=== PATIENT | male | born 1950 | race Caucasian/White ===

== ENCOUNTER → 2018-03-21 | Day surgery (SDC) | payer MEDICARE, OTHER ==
[~2018-03-21] MED LIST: LIDOCAINE 1% PF 2 ML VIAL. ID; MORPHINE SULFATE 2 MG/ML DISP.SYRIN. IV; ONDANSETRON PF 4 MG/2 ML VIAL. IV; PROCHLORPERAZINE 10 MG/2 ML VIAL. IV; PROPOFOL 40 ML IV
[2018-03-21] MEDS: IV RINGERS,LACTATED 1000ML 1,000 ML IV (11:29)
== END | disposition home or self-care (01) ==
LOC: ENDOS 10:56
DX: K63.5 Polyp of colon (principal); K57.30 Diverticulosis of large intestine without perforation or abscess without bleeding; K64.0 First degree hemorrhoids; I10 Essential (primary) hypertension; F41.9 Anxiety disorder, unspecified; E78.00 Pure hypercholesterolemia, unspecified; F32.9 Major depressive disorder, single episode, unspecified; Z88.5 Allergy status to narcotic agent; Z91.040 Latex allergy status; Z82.49 Family history of ischemic heart disease and other diseases of the circulatory system; Z72.89 Other problems related to lifestyle; Z79.82 Long term (current) use of aspirin; Z79.899 Other long term (current) drug therapy; Z88.8 Allergy status to other drugs, medicaments and biological substances; Z98.42 Cataract extraction status, left eye; Z98.41 Cataract extraction status, right eye; Z96.1 Presence of intraocular lens; Z87.891 Personal history of nicotine dependence
CPT/HCPCS: 45380; 88305; J2704

== ENCOUNTER → 2021-07-15 | Day surgery (SDC) | payer MEDICARE ==
[~2021-07-15] VITALS: Ht 170.2 cm; Wt 77.0 kg
[~2021-07-15] MED LIST changes: +ALPR0.5T6 PO; +AMLO-187 PO; +ASPI81TA50 PO; +FINA5TAB4 PO; +IV RINGERS,LACTATED 1000ML 1,000 ML IV SCH; -LIDOCAINE 1% PF 2 ML VIAL. ID; +METO-239 PO; -MORPHINE SULFATE 2 MG/ML DISP.SYRIN. IV; -ONDANSETRON PF 4 MG/2 ML VIAL. IV; +POTA-121 PO; -PROCHLORPERAZINE 10 MG/2 ML VIAL. IV; +PROPOFOL 10 MG/ML (20ML) VIAL. IV ONE; -PROPOFOL 40 ML IV; +TAMS0.4C2 PO; +TRAZ-123 PO; +VALS320T2 PO
[2021-07-15 07:28] VITALS: BP 141/72
--- NOTE | 2021-07-15 08:06 | CONS ---
DATE OF CONSULTATION: 07/15/2021 UPDATED HISTORY AND PHYSICAL REFERRING PHYSICIAN: Dr. Dorene Palma. REASON FOR CONSULTATION: Change in bowel habits. HISTORY OF PRESENT ILLNESS: A 70-year-old male whose past medical history is significant for colonic polyps, diverticulosis, rectal bleed, hyperlipidemia, seen for change in bowel habits. He has had change in caliber, frequency and form and has been moderate in nature and he has had up to 16 bowel movements daily with a sense of incomplete evacuation. Last colonoscopy in 2018 did reveal colonic polyps, diverticulosis with continued issues and requests additional evaluation. PAST MEDICAL HISTORY: Significant for hyperlipidemia, anxiety, colonic polyps, diverticulosis. ALLERGIES: STATINS, MEPERIDINE. MEDICATIONS: Include alprazolam, aspirin, metoprolol, potassium chloride, tamsulosin, valsartan. FAMILY HISTORY: Noncontributory. SOCIAL HISTORY: Former smoker and social drinker. PAST SURGICAL HISTORY: Significant for right foot surgery. REVIEW OF SYSTEMS: As per records. PHYSICAL EXAMINATION: GENERAL: Reveals a well-nourished, well-developed male who is alert, cooperative, in no acute distress. VITAL SIGNS: Afebrile, pulse is 75, respiratory rate 18, blood pressure 130/70. LUNGS: Clear. CARDIOVASCULAR: Reveals an S1, S2, without S3, S4 or appreciable murmur. ABDOMEN: Reveals a soft abdomen, normal bowel sounds, without appreciable hepatosplenomegaly. EXTREMITIES: Reveals no cyanosis, clubbing or edema. IMPRESSION: Change in bowel habits, history of diverticulosis, colonic polyps. Interval exam is recommended at this time. Risks and benefits of procedure including risk of hemorrhage and perforation during operation have been discussed. The patient is willing to proceed. If it is unhelpful then a CT scan of the abdomen and pelvis and her barium enema would be pursued with his change in bowel habits and rectal bleeding. DUANE/RENETTA MARTIN: Patsy TID: [id number]
[2021-07-15 08:38] VITALS: BP 142/81
== END | disposition home or self-care (01) ==
LOC: ENDOS 06:59
PROVIDERS: ATTEND Internal Medicine Gastroenterology
DX: R19.4 Change in bowel habit (principal); K92.1 Melena; K64.0 First degree hemorrhoids; K57.30 Diverticulosis of large intestine without perforation or abscess without bleeding; K63.89 Other specified diseases of intestine; I10 Essential (primary) hypertension; E78.00 Pure hypercholesterolemia, unspecified; G47.30 Sleep apnea, unspecified; F41.9 Anxiety disorder, unspecified; F32.9 Major depressive disorder, single episode, unspecified; Z79.82 Long term (current) use of aspirin; Z79.899 Other long term (current) drug therapy; Z87.891 Personal history of nicotine dependence; Z86.010 Personal history of colon polyps; Z98.890 Other specified postprocedural states; Z20.822 Contact with and (suspected) exposure to COVID-19; Z91.040 Latex allergy status; Z88.8 Allergy status to other drugs, medicaments and biological substances; Z72.89 Other problems related to lifestyle
CPT/HCPCS: 45378; 87426; J2704